=== PATIENT | female | born 1970 | race Caucasian/White ===

== ENCOUNTER 2020-04-21 09:57 | Outpatient (CLI) | payer BC, SELFPAY ==
--- NOTE | 2020-04-21 10:02 | MM_ITS ---
WS: [id number] BILATERAL SCREENING DIGITAL MAMMOGRAM WITH CAD HISTORY: SCREENING COMPARISON: 03/26/2019 and 03/10/2018 Bilateral CC and MLO views submitted. Computer aided detection analyzed. Breast composition: There are scattered areas of fibroglandular density. No suspicious masses, microc alcifications or architectural distortion. Stable calcifications and lymph nodes. MM/[place] [id number] IMPRESSION: BI-RADS: 2-Benign FOLLOW UP: 1 Year Follow-up
== END 2020-04-21 09:58 | disposition home or self-care (01) ==
LOC: RADSHAW 10:01
PROVIDERS: PCP Family Medicine; Visit Provider Family Medicine
DX: Z12.31 Encounter for screening mammogram for malignant neoplasm of breast (principal)
CPT/HCPCS: 77067

== ENCOUNTER → 2020-10-27 08:08 | Outpatient (BNVA) | payer BC, SELFPAY | PROVIDERS: PCP Family Medicine; Visit Provider Dermatology | DX: Z13.6 Encounter for screening for cardiovascular disorders (principal) | CPT/HCPCS: 80061; 82947; 83036 ==

== ENCOUNTER 2021-04-27 08:41 | Outpatient (CLI) | payer OTHER, SELFPAY ==
--- NOTE | 2021-04-27 08:50 | MM_ITS ---
WS: [id number] Exam: [place] [id number] Date/Time of Exam: 04/27/2021 8:55 AM Reason For Exam: SCREENING VIEWS: MLO and CC views both breasts. Comparison made with prior exam of 04/21/2020, 03/26/2019, and 03/10/2018.. Findings: There was no sign of mass, architectural distortion or suspicious calcification in either breast. Sc attered fibroglandular densities MM/[place] [id number] Impression: BI-RADS: 2-Benign FOLLOW-UP: 1 Year Follow-up This mammogram was also analyzed by the Computer Aided Detection System R2 Imag e Flight Radio Operator.
== END 2021-04-27 08:42 | disposition home or self-care (01) ==
LOC: RADSHAW 08:49
PROVIDERS: PCP Family Medicine; Visit Provider Family Medicine
DX: Z12.31 Encounter for screening mammogram for malignant neoplasm of breast (principal)
CPT/HCPCS: 77067

== ENCOUNTER 2022-05-01 08:53 | Outpatient (CLI) | payer OTHER, SELFPAY ==
--- NOTE | 2022-05-01 08:58 | MM_ITS ---
WS: [email or web address] VIEWS: MLO and CC views both breasts. 3D digital tomosynthesis is also included in this exam. Comparison made with prior exam of 03/13/2016, 03/08/2017, 03/10/2018, 03/26/2019, 04/21/2020 and 04/27/2021. . Findings: There was no sign of mass, architectural distortion or suspicious calcification in either breast. Fa [place]ty MM/[place] [id number] Impression: BI-RADS: 2-Benign FOLLOW-UP: 1 Year Follow-up This mammogram was also analyzed by the Computer Aided Detection System R2 Imag e Stem Cleaning Machine Feeder.
== END 2022-05-01 08:54 | disposition home or self-care (01) ==
LOC: RAD 08:54
PROVIDERS: PCP Family Medicine; Visit Provider Family Medicine
DX: Z12.31 Encounter for screening mammogram for malignant neoplasm of breast (principal)
CPT/HCPCS: 77063; 77067

== ENCOUNTER 2023-05-07 11:47 | Outpatient (CLI) | payer OTHER, SELFPAY ==
--- NOTE | 2023-05-07 11:54 | MM_ITS ---
WS: [email or web address] BILATERAL 3D TOMOSYNTHESIS DIGITAL SCREENING MAMMOGRAPHY WITH CAD CLINICAL INFORMATION: SCREENING HISTORY: Screening mammogram. No current complaints. COMPARISON: 05/01/2022 TECHNIQUE: Bilateral CC and MLO views. FINDINGS: Scattered fibroglandular densities bilaterally. No suspicious focal mass, asymmetry, calcifications, or architectural distortion. No evidence of malignancy. Stable intramammary lymph nodes RIGHT breast. Incidental lucent centered calcification LEFT breast. IMPRESSION: MM/[place] [id number] BI-RADS: 2-Benign FOLLOW UP: 1 Year Follow-up Recommend return to annual screening mammography.
== END 2023-05-07 11:48 | disposition home or self-care (01) ==
PROVIDERS: PCP Family Medicine; Visit Provider Family Medicine
DX: Z12.31 Encounter for screening mammogram for malignant neoplasm of breast (principal)
CPT/HCPCS: 77063; 77067

== ENCOUNTER 2023-10-25 12:53 | Outpatient (CLI) | payer OTHER, SELFPAY ==
--- NOTE | 2023-10-25 13:30 | US_ITS ---
WS: [email or web address] Complete ABDOMINAL ULTRASOUND HISTORY: R10.9 - Unspecified abdominal pain COMPARISON: RIGHT upper quadrant ultrasound 01/08/2017 Liver: 14.2 cm in length. Normal size liver. Mild coarse echotexture. No bile duct dilatation. Portal Vein: Normal hepatopetal flow with monophasic waveform. Gallbladder: Contracted with stones. CBD: 0.5 cm Pancreas: Not visualized. Right kidney: 8.7 cm x 3.8 x 4.3 cm. Cortex:1.2 cm. Low normal size kidney. No obstruction. Left kidney: 9.1 cm x 4.0 cm x 4.1 cm. Cortex: 1.1 cm. Normal size and echogenicity. No hydronephrosis or mass. Spleen: Normal. Aorta and IVC: Unremarkable abdominal aorta and IVC. Impression: 1. Cholelithiasis. Contracted gallbladder with stones. No bile duct dilatation. 2. No hydronephrosis. 3. Suspect mild hepatic steatosis. Normal size liver.
--- NOTE | 2023-10-25 14:15 | US_ITS ---
WS: [email or web address] US pelv w/transvag [id number] HISTORY: R10.9 - Unspecified abdominal pain COMPARISON: None available. Uterus: 6.8 cm x 4.2 cm x 3.2 cm. Normal size anteverted uterus. No fibroid or mass. Endometrium: 0.4 cm. Very poorly visualized endometrium. The junctional zone is mildly thickened but present. Neither ovary is identified. No adnexal mass. No free fluid in the cul-de-sac. IMPRESSION: 1. Technically Limited quality evaluation of the pelvis. 2. Mildly heterogeneous endometrium but no mass. 3. Neither ovary is identified.
== END 2023-10-25 12:54 | disposition home or self-care (01) ==
LOC: RAD 12:53
PROVIDERS: PCP Family Medicine; Visit Provider Nurse Practitioner Family
DX: R10.9 Unspecified abdominal pain (principal)
CPT/HCPCS: 76700; 76830; 76856; 81000; 87077; 87086; 87184

== ENCOUNTER → 2023-11-06 14:44 | Outpatient (BNVA) | payer OTHER, SELFPAY | PROVIDERS: PCP Nurse Practitioner Family; Visit Provider Nurse Practitioner Family | DX: Z12.4 Encounter for screening for malignant neoplasm of cervix (principal); Z78.9 Other specified health status | CPT/HCPCS: 81000; 87070; 87077; 87086; 87184; 87205; 88175 ==

== ENCOUNTER → 2023-11-18 09:37 | Outpatient (BNVA) | payer BC, MEDICAID, SELFPAY | PROVIDERS: PCP Nurse Practitioner Family; Visit Provider Nurse Practitioner Family | DX: N39.0 Urinary tract infection, site not specified (principal) | CPT/HCPCS: 87086 ==

== ENCOUNTER → 2023-12-04 11:25 | Outpatient (BNVA) | payer BC, MEDICAID, SELFPAY | PROVIDERS: PCP Nurse Practitioner Family; Visit Provider Nurse Practitioner Family | DX: Z12.83 Encounter for screening for malignant neoplasm of skin (principal) | CPT/HCPCS: 88305 ==

== ENCOUNTER → 2024-01-28 11:26 | Outpatient (BNVA) | payer OTHER, BC, MEDICAID, SELFPAY | PROVIDERS: PCP Nurse Practitioner Family; Visit Provider Nurse Practitioner Family | DX: N39.0 Urinary tract infection, site not specified (principal) | CPT/HCPCS: 81000; 87077; 87086; 87184 ==

== ENCOUNTER 2024-01-29 07:41 | Outpatient (CLI) | payer OTHER, BC, MEDICAID, SELFPAY ==
--- NOTE | 2024-01-29 07:45 | US_ITS ---
WS: [email or web address] US pelv w/transvag [id number] HISTORY: Z09 - Encounter for follow-up examination after completed... COMPARISON: 10/25/2023 Uterus: 6.2 cm x 3.9 cm x 3.1 cm. Anteverted uterus. Continued limited evaluation of the myometrium. No fibroid or mass identified. Endometrium: 0.4 cm. Majority the endometrium is visualized and normal. Junctional zone is normal. Right ovary: Not visualized. No adnexal mass. Left ovary: 2.0 cm x 1.4 cm x 2.1 cm. Normal size and vascularity, no cystic or solid masses. No free fluid in the cul-de-sac. US/US pelv w/transvag [id number] IMPRESSION: 1. Endometrium appears normal at 4 mm. Still limited evaluation but the juncti onal zone is normal. 2. RIGHT ovary not identified.
== END 2024-01-29 07:42 | disposition home or self-care (01) ==
LOC: RAD 07:41
PROVIDERS: PCP Nurse Practitioner Family; Visit Provider Nurse Practitioner Family
DX: Z09 Encounter for follow-up examination after completed treatment for conditions other than malignant neoplasm (principal)
CPT/HCPCS: 76830; 76856

== ENCOUNTER → 2024-02-17 09:08 | Outpatient (BNVA) | payer OTHER, BC, MEDICAID, SELFPAY | PROVIDERS: PCP Nurse Practitioner Family; Visit Provider Nurse Practitioner Family | DX: N30.00 Acute cystitis without hematuria (principal) | CPT/HCPCS: 81000; 87086 ==

== ENCOUNTER → 2024-03-03 11:33 | Outpatient (BNVA) | payer OTHER, BC, MEDICAID, SELFPAY | PROVIDERS: PCP Nurse Practitioner Family; Visit Provider Nurse Practitioner Family | DX: N30.00 Acute cystitis without hematuria (principal) | CPT/HCPCS: 87086 ==

== ENCOUNTER 2024-05-08 09:43 | Outpatient (CLI) | payer OTHER, BC, MEDICAID, SELFPAY ==
--- NOTE | 2024-05-08 10:00 | MM_ITS ---
WS: [email or web address] BILATERAL SCREENING DIGITAL TOMOSYNTHESIS MAMMOGRAM WITH CAD HISTORY: Z12.39 - Encounter for other screening for malignant neop... COMPARISON: 05/07/2023, 05/01/2022 and 04/27/2021 Bilateral CC and MLO views with tomosynthesis and synthetic mammography submitted. Computer aided det ection analyzed. Breast composition: The breasts are almost entirely fatty. No suspicious masses, microcalcifications or architectural distortion. Intramammary lymph nodes RIGHT breast. MM/[place] [id number] IMPRESSION: BI-RADS: 2 - Benign. FOLLOW UP: 1 Year Follow-up
== END 2024-05-08 09:44 | disposition home or self-care (01) ==
LOC: RAD 09:44
PROVIDERS: PCP Nurse Practitioner Family; Visit Provider Nurse Practitioner Family
DX: Z12.39 Encounter for other screening for malignant neoplasm of breast (principal); R92.313 Mammographic fatty tissue density, bilateral breasts
CPT/HCPCS: 77063; 77067

== ENCOUNTER → 2024-08-20 10:18 | Outpatient (BNVA) | payer OTHER, SELFPAY | PROVIDERS: PCP Nurse Practitioner Family; Visit Provider Nurse Practitioner Family | DX: E78.5 Hyperlipidemia, unspecified (principal); R53.83 Other fatigue; I10 Essential (primary) hypertension; N30.00 Acute cystitis without hematuria | CPT/HCPCS: 80053; 80061; 81000; 85025; 87086 ==

== ENCOUNTER → 2024-09-04 10:57 | Outpatient (BNVA) | payer OTHER, SELFPAY | PROVIDERS: PCP Nurse Practitioner Family; Visit Provider Nurse Practitioner Family | DX: N30.00 Acute cystitis without hematuria (principal) | CPT/HCPCS: 81000 ==

== ENCOUNTER → 2024-09-28 11:22 | Outpatient (BNVA) | payer OTHER, SELFPAY | PROVIDERS: PCP Nurse Practitioner Family; Visit Provider Nurse Practitioner Family | DX: N39.0 Urinary tract infection, site not specified (principal) | CPT/HCPCS: 87086 ==

== ENCOUNTER → 2024-11-30 13:57 | Outpatient (BNVA) | payer OTHER, SELFPAY | PROVIDERS: PCP Nurse Practitioner Family; Visit Provider Nurse Practitioner Family | DX: E66.9 Obesity, unspecified (principal); E78.2 Mixed hyperlipidemia; R53.83 Other fatigue; Z00.00 Encounter for general adult medical examination without abnormal findings | CPT/HCPCS: 80053; 80061; 82672; 84144; 84403; 85025 ==

== ENCOUNTER → 2024-12-14 11:48 | Outpatient (BNVA) | payer OTHER, SELFPAY | PROVIDERS: PCP Nurse Practitioner Family; Visit Provider Nurse Practitioner Family | DX: N81.11 Cystocele, midline (principal); R32 Unspecified urinary incontinence; R53.83 Other fatigue; E66.9 Obesity, unspecified | CPT/HCPCS: 84439; 84443 ==

== ENCOUNTER → 2025-04-30 09:58 | Outpatient (BNVA) | payer OTHER, SELFPAY | PROVIDERS: PCP Nurse Practitioner Family; Visit Provider Nurse Practitioner Family | DX: N30.00 Acute cystitis without hematuria (principal); R53.83 Other fatigue; E78.2 Mixed hyperlipidemia; I10 Essential (primary) hypertension | CPT/HCPCS: 80053; 80061; 81000; 84443; 85025 ==

== ENCOUNTER 2025-05-18 09:53 | Outpatient (CLI) | payer OTHER, SELFPAY ==
--- NOTE | 2025-05-18 09:58 | MM_ITS ---
WS: [email or web address] BILATERAL 3D TOMOSYNTHESIS DIGITAL SCREENING MAMMOGRAPHY WITH CAD CLINICAL INFORMATION: SCREEN HISTORY: Screening mammogram. No current complaints. COMPARISON: 2023 TECHNIQUE: Bilateral CC and MLO views. FINDINGS: Scattered fibroglandular densities bilaterally. No suspicious focal mass, asymmetry, calcifications, or architectural distortion. No evidence of malignancy. Benign lucent centered calcification LEFT breast. MM/MM scr BI tomosynthesis [id number] IMPRESSION: DENSITY: There are scattered areas of fibroglandular density. BI-RADS: 2 - Benign. FOLLOW UP: 1 Year Follow-up Recommend return to annual screening mammography.
== END 2025-05-18 09:54 | disposition home or self-care (01) ==
LOC: RAD 09:53
PROVIDERS: PCP Nurse Practitioner Family; Visit Provider Nurse Practitioner Family
DX: Z12.31 Encounter for screening mammogram for malignant neoplasm of breast (principal); R92.323 Mammographic fibroglandular density, bilateral breasts; R92.1 Mammographic calcification found on diagnostic imaging of breast
CPT/HCPCS: 77063; 77067

== ENCOUNTER 2025-06-28 12:24 | Outpatient (CLI) | payer OTHER, SELFPAY ==
--- NOTE | 2025-06-28 | ECG_ITS ---
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
[2025-06-28 12:47] VITALS: BMI 42.4
[2025-06-28 12:59] VITALS: BP 123/78; PULSE 100
== END 2025-06-28 12:25 | disposition home or self-care (01) ==
LOC: CDL 12:25
PROVIDERS: PCP Nurse Practitioner Family; Visit Provider Nurse Practitioner Family
DX: R07.9 Chest pain, unspecified (principal)
CPT/HCPCS: 93017

== ENCOUNTER → 2025-06-29 13:47 | Outpatient (BNVA) | payer OTHER, SELFPAY | PROVIDERS: PCP Nurse Practitioner Family; Visit Provider Nurse Practitioner Family | DX: R35.0 Frequency of micturition (principal) | CPT/HCPCS: 81000 ==